=== PATIENT | female | born 1985 | race Caucasian/White ===

== ENCOUNTER 2023-05-28 13:45 | Outpatient (CLI) | payer BC | END 2023-05-28 13:46 | disposition home or self-care (01) | LOC: CSHMAMMO 13:45 | PROVIDERS: ATTEND Student in an Organized Health Care Education/Training Program | DX: R92.30 Dense breasts, unspecified (principal); N64.89 Other specified disorders of breast; N63.10 Unspecified lump in the right breast, unspecified quadrant | CPT/HCPCS: G0279 ==

== ENCOUNTER 2023-12-07 08:22 | Outpatient (CLI) | payer BC | END 2023-12-07 08:23 | disposition home or self-care (01) | LOC: CSHULT 08:22 | PROVIDERS: ATTEND Student in an Organized Health Care Education/Training Program | DX: R92.30 Dense breasts, unspecified (principal) ==